=== PATIENT | female | born 1995 | race Two or more races ===

== ENCOUNTER 2021-01-13 16:31 | Emergency (ER) | payer OTHER ==
[~2021-01-13] VITALS: Ht 154.9 cm; Wt 59.0 kg
== END 2021-01-13 19:30 | disposition home or self-care (01) ==
LOC: ER 16:31
DX: T78.40XA Allergy, unspecified, initial encounter (principal); B34.9 Viral infection, unspecified; T45.0X5A Adverse effect of antiallergic and antiemetic drugs, initial encounter; Y92.89 Other specified places as the place of occurrence of the external cause

== ENCOUNTER 2021-05-15 13:15 | Emergency (ER) | payer OTHER ==
[~2021-05-15] VITALS: Ht 154.9 cm; Wt 44.9 kg
[2021-05-15] MEDS ORDERED: OMEPRAZOLE MAGN20 MG PO (15:44)
== END 2021-05-15 16:19 | disposition home or self-care (01) ==
LOC: ER 13:15
DX: K29.70 Gastritis, unspecified, without bleeding (principal); Z88.1 Allergy status to other antibiotic agents

== ENCOUNTER 2021-05-17 20:32 | Emergency (ER) | payer OTHER ==
[~2021-05-17] VITALS: Ht 154.9 cm; Wt 56.7 kg
[~2021-05-17 20:32] MED LIST: OMEPRAZOLE MAGN20 MG PO
[2021-05-17] MEDS ORDERED: PEPCID AC20 MG PO (20:49)
== END 2021-05-17 21:51 | disposition home or self-care (01) ==
LOC: ER 20:32
DX: K29.70 Gastritis, unspecified, without bleeding (principal); Z88.8 Allergy status to other drugs, medicaments and biological substances

== ENCOUNTER 2023-09-05 19:49 | Emergency (ER) | payer OTHER ==
[~2023-09-05] VITALS: Ht 154.9 cm; Wt 59.0 kg
[~2023-09-05 19:49] MED LIST changes: +PEPCID AC20 MG PO
[2023-09-05] MEDS ORDERED: AMOX1TAB5 PO (20:00)
[2023-09-05] MEDS ORDERED: TETANUS & DIPHTHERIA TOX,ADULT 0.5 ML VIAL IM ONE (20:00)
[2023-09-05] MEDS ORDERED: CEFTRIAXONE SODIUM 1,000 MG VIAL IM ONE (20:00)
== END 2023-09-05 21:31 | disposition home or self-care (01) ==
LOC: ER 19:50
DX: S81.031A Puncture wound without foreign body, right knee, initial encounter (principal); W54.0XXA Bitten by dog, initial encounter; Y93.89 Activity, other specified; Y92.89 Other specified places as the place of occurrence of the external cause; Z88.8 Allergy status to other drugs, medicaments and biological substances
CPT/HCPCS: 90471; 90714; 96372; 99282; J0696